=== PATIENT | female | born 1935 | race Caucasian/White ===

== ENCOUNTER → 2017-02-24 | Outpatient (CLI) | payer MEDICARE, BC ==
[~2017-02-24] MED LIST: ANTACID ULTRA1177 MG PO; BICARSIM FORTE1 TA1 PO; CLARITIN 1010 MG/TAB PO; COENZYME Q10100 M1 PO; OMEGA 3-6-9 11200 MG PO; TIMOLOL MALEATE5 ML OU
== END ==
LOC: LAB 10:40
DX: R30.0 Dysuria (principal); B96.20 Unspecified Escherichia coli [E. coli] as the cause of diseases classified elsewhere

== ENCOUNTER → 2017-03-10 | Outpatient (CLI) | payer MEDICARE, BC ==
[2016-11-09 14:50] VITALS: BP 167/72
== END ==
LOC: LAB 10:09
DX: N30.00 Acute cystitis without hematuria (principal)

== ENCOUNTER → 2017-07-12 | Outpatient (CLI) | payer MEDICARE, BC ==
[2016-11-09 14:50] VITALS: BP 167/72
== END ==
LOC: RAD 16:29
DX: R14.0 Abdominal distension (gaseous) (principal); R19.5 Other fecal abnormalities; R53.82 Chronic fatigue, unspecified

== ENCOUNTER → 2017-07-13 | Outpatient (CLI) | payer MEDICARE, BC ==
[2016-11-09 14:50] VITALS: BP 167/72
== END ==
LOC: LAB 13:58
DX: R14.0 Abdominal distension (gaseous) (principal); R19.5 Other fecal abnormalities; R53.82 Chronic fatigue, unspecified

== ENCOUNTER → 2017-11-10 | Outpatient (CLI) | payer MEDICARE, BC ==
[2016-11-09 14:50] VITALS: BP 167/72
[2017-11-10 09:02] LABS: ALBUMIN 3.9 g/dL (3.5-5.0); BUN/CREATININE RATIO 28.3 (6.0-26.0); CALCIUM 9.5 mg/dL (8.4-10.2); POTASSIUM 4.3 mmol/L (3.6-5.0); TOTAL BILIRUBIN 0.7 mg/dL (0.2-1.3); TOTAL PROTEIN 6.8 g/dL (6.3-8.2)
== END ==
LOC: LAB 08:33
PROVIDERS: Family Medicine
DX: I10 Essential (primary) hypertension (principal); Z82.3 Family history of stroke; Z13.1 Encounter for screening for diabetes mellitus

== ENCOUNTER → 2017-11-24 | Outpatient (CLI) | payer MEDICARE, BC ==
[2016-11-09 14:50] VITALS: BP 167/72
== END ==
LOC: LAB 09:32
DX: J06.9 Acute upper respiratory infection, unspecified (principal); R05 Cough

== ENCOUNTER → 2018-07-11 | Outpatient (CLI) | payer MEDICARE, BC ==
[2016-11-09 14:50] VITALS: BP 167/72
[2018-07-11 10:04] LABS: URINE APPEARANCE CLEAR; URINE BILIRUBIN NEGATIVE (NEGATIVE); URINE BLOOD NEGATIVE (NEGATIVE); URINE COLOR YELLOW; URINE GLUCOSE NEGATIVE (NEGATIVE); URINE KETONE NEGATIVE (NEGATIVE); URINE LEUKOCYTE ESTERASE NEGATIVE (NEGATIVE); URINE NITRATE NEGATIVE (NEGATIVE); URINE PROTEIN(semi-quant) NEGATIVE (NEGATIVE); URINE UROBILINOGEN NORMAL (NORMAL); URINE WBC 0-1 /hpf (0-3)
[2018-07-11 10:05] LABS: URINE MUCUS PRESENT (NOT PRESENT)
== END ==
LOC: RAD 08:50
PROVIDERS: Family Medicine
DX: M43.8X4 Other specified deforming dorsopathies, thoracic region (principal); M41.85 Other forms of scoliosis, thoracolumbar region; N39.0 Urinary tract infection, site not specified

== ENCOUNTER → 2018-08-13 | Outpatient (CLI) | payer MEDICARE, BC ==
[2016-11-09 14:50] VITALS: BP 167/72
[2018-08-13 18:14] LABS: URINE APPEARANCE CLEAR; URINE BILIRUBIN NEGATIVE (NEGATIVE); URINE BLOOD NEGATIVE (NEGATIVE); URINE COLOR YELLOW; URINE GLUCOSE NEGATIVE (NEGATIVE); URINE KETONE NEGATIVE (NEGATIVE); URINE LEUKOCYTE ESTERASE NEGATIVE (NEGATIVE); URINE NITRATE NEGATIVE (NEGATIVE); URINE PROTEIN(semi-quant) NEGATIVE (NEGATIVE); URINE UROBILINOGEN NORMAL (NORMAL)
[2018-08-13 18:15] LABS: URINE WBC 0-1 /hpf (0-3)
== END ==
LOC: LAB 17:35
PROVIDERS: Family Medicine
DX: R39.15 Urgency of urination (principal)

== ENCOUNTER → 2018-12-17 | Outpatient (CLI) | payer MEDICARE, BC ==
[2016-11-09 14:50] VITALS: BP 167/72
[2018-12-17 09:03] LABS: ALBUMIN 4.1 g/dL (3.5-5.0); CALCIUM 9.3 mg/dL (8.4-10.2); TOTAL BILIRUBIN 0.4 mg/dL (0.2-1.3)
== END ==
LOC: LAB 08:36
PROVIDERS: Family Medicine
DX: Z13.6 Encounter for screening for cardiovascular disorders (principal); I10 Essential (primary) hypertension

== ENCOUNTER 2019-03-06 12:35 | Emergency (ER) | payer MEDICARE, BC ==
[~2019-03-06] VITALS: Ht 160 cm; Wt 75.5 kg
[2019-03-06] MEDS ORDERED: MULTIVITAMIN1 SGL PO (12:55)
[2019-03-06] MEDS ORDERED: PROBIOTIC1 EAC1 PO (12:56)
[2019-03-06] MEDS ORDERED: LOTEMAX0.5% OP (12:56)
[2019-03-06] MEDS ORDERED: GENTEAL TEARS 015 M1 OP (12:56)
[2019-03-06] MEDS ORDERED: OMEPRAZOLE D/R20 MG PO (12:57)
[2019-03-06] MEDS ORDERED: CLONAZEPAM0.25 MG PO (12:58)
[2019-03-06] MEDS ORDERED: PYRIDIUM100 M1 PO (12:58)
[2019-03-06] MEDS ORDERED: LOSARTAN POTASS25 MG PO (13:01)
[2019-03-06 13:40] LABS: BASO # 0.1 (0.02-0.10); EOS # 0.2 (0.04-0.40); EOS % 2.4 % (1.0-5.0); HEMATOCRIT 44.7 % (37.0-47.0); HEMOGLOBIN 15.1 g/dL (12.5-16.0); LYMPH# 1.6 (1.50-4.00); MEAN CELL VOLUME 88 fl (78-100); MEAN CORPUSCULAR HEMOGLOBIN 30 pg (27-31); MEAN CORPUSCULAR HGB CONC 34 g/dL (33-37); MEAN PLATELET VOLUME 8.8 fl (7.4-10.4); MONO # 0.7 (0.20-0.80); NEU # 4.5 (1.40-6.50); PLATELET COUNT 268 K/mm3 (130-400); RED BLOOD COUNT 5.11 M/mm3 (4.10-5.30); RED CELL DISTRIBUTION WIDTH 13.5 % (11.5-14.5); WHITE BLOOD COUNT 7.1 K/mm3 (4.8-10.8)
[2019-03-06 13:46] LABS: CALCIUM 9.6 mg/dL (8.4-10.2); POTASSIUM 4.2 mmol/L (3.6-5.0)
[2019-03-06] MEDS ORDERED: DRAMAMINE LESS25 MG PO (15:59)
[2019-03-06] MEDS ORDERED: ZOFRAN ODT4 MG PO (15:59)
[2019-03-06 16:08] VITALS: BP 131/64
[2019-03-06 17:11] LABS: URINE APPEARANCE CLEAR; URINE COLOR YELLOW
[2019-03-06 17:12] LABS: URINE BILIRUBIN NEGATIVE (NEGATIVE); URINE BLOOD NEGATIVE (NEGATIVE); URINE GLUCOSE NEGATIVE (NEGATIVE); URINE KETONE NEGATIVE (NEGATIVE); URINE LEUKOCYTE ESTERASE NEGATIVE (NEGATIVE); URINE NITRATE NEGATIVE (NEGATIVE); URINE PROTEIN(semi-quant) NEGATIVE (NEGATIVE); URINE UROBILINOGEN NORMAL (NORMAL); URINE WBC 0-1 /hpf (0-3)
== END 2019-03-06 16:17 | disposition home or self-care (01) ==
LOC: ED 12:35
PROVIDERS: Physician Assistant
DX: R42 Dizziness and giddiness (principal); I10 Essential (primary) hypertension; R11.2 Nausea with vomiting, unspecified; Z79.51 Long term (current) use of inhaled steroids; Z90.49 Acquired absence of other specified parts of digestive tract; Z90.710 Acquired absence of both cervix and uterus
CPT/HCPCS: J2405

== ENCOUNTER → 2019-05-16 | Outpatient (CLI) | payer MEDICARE, BC ==
[~2019-05-16] MED LIST changes: +CLONAZEPAM0.25 MG PO; +DRAMAMINE LESS25 MG PO; +GENTEAL TEARS 015 M1 OP; +LOSARTAN POTASS25 MG PO; +LOTEMAX0.5% OP; +MULTIVITAMIN1 SGL PO; +OMEPRAZOLE D/R20 MG PO; +PROBIOTIC1 EAC1 PO; +PYRIDIUM100 M1 PO; +ZOFRAN ODT4 MG PO
== END ==
LOC: RAD 14:38
DX: M43.12 Spondylolisthesis, cervical region (principal); M47.812 Spondylosis without myelopathy or radiculopathy, cervical region; M19.071 Primary osteoarthritis, right ankle and foot; M19.072 Primary osteoarthritis, left ankle and foot; M17.0 Bilateral primary osteoarthritis of knee

== ENCOUNTER → 2019-05-24 | Outpatient (CLI) | payer MEDICARE, BC ==
[2019-05-24 16:03] LABS: HEMATOCRIT 42.6 % (37.0-47.0); MEAN PLATELET VOLUME 8.3 fl (7.4-10.4); RED BLOOD COUNT 4.7 M/mm3 (4.10-5.30); WHITE BLOOD COUNT 6.1 K/mm3 (4.8-10.8)
[2019-05-24 16:10] LABS: CALCIUM 9.5 mg/dL (8.3-10.5)
== END ==
LOC: LAB 15:34
PROVIDERS: Family Medicine
DX: Z13.6 Encounter for screening for cardiovascular disorders (principal); I10 Essential (primary) hypertension; I73.9 Peripheral vascular disease, unspecified; R60.0 Localized edema

== ENCOUNTER → 2019-05-28 | Outpatient (CLI) | payer MEDICARE, BC | LOC: LAB 11:07 | DX: R73.9 Hyperglycemia, unspecified (principal) ==

== ENCOUNTER → 2019-06-03 | Outpatient (CLI) | payer MEDICARE, BC | LOC: RAD 10:19 | DX: I70.212 Atherosclerosis of native arteries of extremities with intermittent claudication, left leg (principal); R68.89 Other general symptoms and signs ==

== ENCOUNTER → 2019-10-23 | Outpatient (CLI) | payer MEDICARE, BC | LOC: LAB 11:49 | DX: N39.0 Urinary tract infection, site not specified (principal) ==

== ENCOUNTER → 2019-10-30 | Outpatient (CLI) | payer MEDICARE, BC ==
[2019-10-30 11:01] LABS: PH-URINE 6.5 (5.0 - 8.0); URINE APPEARANCE CLEAR; URINE BILIRUBIN NEGATIVE (NEGATIVE); URINE BLOOD NEGATIVE (NEGATIVE); URINE COLOR YELLOW; URINE GLUCOSE NEGATIVE (NEGATIVE); URINE KETONE NEGATIVE (NEGATIVE); URINE LEUKOCYTE ESTERASE NEGATIVE (NEGATIVE); URINE MUCUS PRESENT (NOT PRESENT); URINE NITRATE NEGATIVE (NEGATIVE); URINE PROTEIN(semi-quant) TRACE mg/dL (NEGATIVE); URINE UROBILINOGEN NORMAL (NORMAL)
== END ==
LOC: LAB 10:27
PROVIDERS: Family Medicine
DX: R30.0 Dysuria (principal)

== ENCOUNTER → 2019-11-04 | Outpatient (CLI) | payer MEDICARE, BC | LOC: LAB 12:31 | DX: M25.542 Pain in joints of left hand (principal); M25.541 Pain in joints of right hand; N39.46 Mixed incontinence; R53.82 Chronic fatigue, unspecified ==

== ENCOUNTER → 2020-06-19 | Outpatient (CLI) | payer MEDICARE, BC | LOC: LAB 15:45 | DX: M79.674 Pain in right toe(s) (principal) ==

== ENCOUNTER → 2020-11-11 | Outpatient (CLI) | payer MEDICARE, BC ==
[2020-11-11 08:56] LABS: HEMATOCRIT 42.4 % (37.0-47.0); HEMOGLOBIN 13.8 g/dL (12.5-16.0); MEAN PLATELET VOLUME 8.4 fl (7.4-10.4); RED BLOOD COUNT 4.68 M/mm3 (4.10-5.30); RED CELL DISTRIBUTION WIDTH 13.6 % (11.5-14.5); WHITE BLOOD COUNT 5.5 K/mm3 (4.8-10.8)
[2020-11-11 11:23] LABS: POTASSIUM 4.4 mmol/L (3.5-5.1)
[2020-11-11 11:24] LABS: CALCIUM 9.4 mg/dL (8.3-10.5)
[2020-11-11 11:26] LABS: TOTAL PROTEIN 6.7 g/dL (6.2-8.1)
[2020-11-11 11:28] LABS: TOTAL BILIRUBIN 0.5 mg/dL (0.2-1.2)
== END ==
LOC: LAB 08:05
PROVIDERS: Family Medicine
DX: I10 Essential (primary) hypertension (principal); R53.82 Chronic fatigue, unspecified

== ENCOUNTER → 2020-11-18 | Outpatient (CLI) | payer MEDICARE, BC | LOC: RAD 09:30 | DX: M19.012 Primary osteoarthritis, left shoulder (principal); M25.812 Other specified joint disorders, left shoulder ==

== ENCOUNTER → 2021-11-02 | Outpatient (CLI) | payer MEDICARE, BC ==
[2021-11-02 08:29] LABS: BASO # 0.06 K/mm3 (0.02-0.10); EOS # 0.21 K/mm3 (0.04-0.40); EOS % 3.4 % (1.0-5.0); HEMATOCRIT 42.2 % (37.0-47.0); HEMOGLOBIN 13.9 g/dL (12.5-16.0); LYMPH# 1.59 K/mm3 (1.50-4.00); MEAN CELL VOLUME 92 fl (78-100); MEAN CORPUSCULAR HEMOGLOBIN 30 pg (27-31); MEAN CORPUSCULAR HGB CONC 33 g/dL (33-37); MEAN PLATELET VOLUME 8.3 fl (7.4-10.4); MONO # 0.58 K/mm3 (0.20-0.80); NEU # 3.77 K/mm3 (1.40-6.50); PLATELET COUNT 258 K/mm3 (130-400); RED CELL DISTRIBUTION WIDTH 13.1 % (11.5-14.5); WHITE BLOOD COUNT 6.2 K/mm3 (4.8-10.8)
[2021-11-02 08:37] LABS: ALBUMIN 4.1 g/dL (3.4-4.8)
[2021-11-02 08:39] LABS: CALCIUM 9.4 mg/dL (8.3-10.5)
[2021-11-02 08:40] LABS: TOTAL PROTEIN 6.7 g/dL (6.2-8.1)
[2021-11-02 08:42] LABS: TOTAL BILIRUBIN 0.5 mg/dL (0.2-1.2)
== END ==
LOC: LAB 08:11
PROVIDERS: Family Medicine
DX: M35.01 Sjogren syndrome with keratoconjunctivitis (principal); I10 Essential (primary) hypertension

== ENCOUNTER → 2022-05-23 | Outpatient (CLI) | payer MEDICARE, BC | LOC: LAB 15:16 | DX: H61.899 Other specified disorders of external ear, unspecified ear (principal) ==

== ENCOUNTER → 2022-12-12 | Outpatient (CLI) | payer MEDICARE, BC | LOC: LAB 11:01 | DX: J02.9 Acute pharyngitis, unspecified (principal) ==

== ENCOUNTER → 2024-06-03 | Outpatient (CLI) | payer MEDICARE, BC ==
[2024-06-03 08:24] LABS: CALCIUM 9.5 mg/dL (8.3-10.5)
== END ==
LOC: LAB 07:56
PROVIDERS: Family Medicine
DX: I73.89 Other specified peripheral vascular diseases (principal); I10 Essential (primary) hypertension